=== PATIENT | female | born 1995 | race Caucasian/White ===

== ENCOUNTER 2018-01-01 17:09 | Emergency (ER) | payer SELFPAY ==
[~2018-01-01] VITALS: Ht 167.6 cm; Wt 50.9 kg
[2018-01-01 17:11] VITALS: BP 107/73
[2018-01-01 17:50] LABS: BASOPHILS # (AUTO) 0.06 x10^3/uL (0-0.1); BASOPHILS % (AUTO) 1 % (0-1); EOSINOPHILS # (AUTO) 0.21 x10^3/uL (0-0.4); EOSINOPHILS % (AUTO) 3 % (1-7); LYMPHOCYTES # (AUTO) 2.05 x10^3/uL (1-3.4); LYMPHOCYTES % (AUTO) 26 % (22-44); MD NO; MEAN CORPUSCULAR HEMOGLOBIN 28.2 pg (27.0-34.8); MEAN CORPUSCULAR VOLUME 83.1 fL (80-100); MEAN PLATELET VOLUME 7.6 fL (7.4-10.4); MONOCYTES # (AUTO) 0.63 x10^3/uL (0.2-0.8); MONOCYTES % (AUTO) 8 % (2-9); NEUTROPHILS # (AUTO) 5.09 x10^3/uL (1.8-6.8); NEUTROPHILS % (AUTO) 63 % (42-75); PLATELET COUNT 434 x10^3/uL (130-400); RED BLOOD COUNT 5.07 x10^6/uL (3.82-5.3); RED CELL DISTRIBUTION WIDTH 12.5 % (9.6-15.2)
[2018-01-01 17:53] LABS: ALBUMIN 4.1 g/dL (3.4-5.0); ANION GAP 5 mmol/L (5-15); CALCIUM 8.7 mg/dL (8.5-10.1); CHLORIDE 106 mmol/L (98-107); CREATININE 0.85 mg/dL (0.55-1.02)
[2018-01-01 17:59] LABS: MICROSCOPIC INDICATED
[2018-01-01 18:00] LABS: CULTURE INDICATED? YES
[2018-01-01 19:16] LABS: CLUE CELLS NONE SEEN (NONE SEEN); WET PREP WBCS MODERATE (FEW)
[2018-01-01] MEDS ORDERED: LIDOCAINE-MPF 1%, 2ML ONE (19:17)
[2018-01-01] MEDS ORDERED: CEFTRIAXONE 250 MG ONE (19:17)
[2018-01-01] MEDS ORDERED: AZITHROMYCIN 250 MG TABLET ONE (19:18)
[2018-01-01] MEDS ORDERED: AZITHROMYCIN 500 MG TABLET PO ONE (19:30)
[2018-01-01] MEDS ORDERED: CEFTRIAXONE 250 MG IM ONE (19:30)
== END 2018-01-01 19:56 | disposition home or self-care (01) ==
LOC: ED 19:30
DX: A56.09 Other chlamydial infection of lower genitourinary tract (principal)
CPT/HCPCS: 36415; 80048; 81001; 82040; 84703; 85025; 87077; 87086; 87186; 87210; 87491; 87591; 87806; 87808; 96372; 99284; J0696; G0475